=== PATIENT | female | born 1950 | race Caucasian/White ===

== ENCOUNTER 2018-02-21 05:13 | Inpatient (IN) ==
[~2018-02-21 05:13] MED LIST: Metoprolol Tartrate 25 MG Tablet PO SCH
[2018-02-21] MEDS ORDERED: Metoprolol Tartrate 25 MG Tablet PO ONE (05:50)
[2018-02-21] MEDS ORDERED: Chlorhexidine Gluconate 2% 1 Pack (2 Cloths) TOPICAL ONE (05:50)
[2018-02-21] MEDS ORDERED: Insulin Regular (For Infusion) 100 UNIT in Sodium Chlor 0.9% Inj 99 ML IV.CONT PRN ×2 (05:55→11:43)
[2018-02-21] MEDS ORDERED: Dextrose 50% in Water 50 ML Vial IV.PUSH PRN ×2 (05:55→11:43)
[2018-02-21] MEDS ORDERED: Chlorhexidine 4% Topical 120 APPLIC/120 ML Bottle TOPICAL SCH (06:00)
[2018-02-21] MEDS ORDERED: ceFAZolin Inj 2,000 MG in Sodium Chlor 0.9% Inj 80 ML IV.SIG SCH (06:00)
[2018-02-21] MEDS ORDERED: Sodium Chlor 0.9% Inj 500 ML IV.SIG SCH (06:00)
[2018-02-21] MEDS ORDERED: Heparin - SQ 10,000 UNITS/ML Vial ONE ×2 (06:45→06:46)
[2018-02-21] MEDS ORDERED: ceFAZolin 1 GM Premix Inj 2 GM/100 ML PIGGYBACK IV.SIG ONE (06:45)
[2018-02-21] MEDS ORDERED: MethylPREDNISolone Sod Succinate Inj 125 MG/2 ML Vial ONE (06:45)
[2018-02-21] MEDS ORDERED: Cardioplegic Irr Soln 2,000 ML IRRIGATION ONE (07:22)
[2018-02-21] MEDS ORDERED: Heparin 10,000 UNITS/10 ML Vial (for IV use) ONE (07:25)
[2018-02-21] MEDS ORDERED: Albumin Human 25% Inj 50 ML IV.SIG ONE (07:26)
[2018-02-21] MEDS ORDERED: Sodium Chloride 0.9% Irr Bot 500 ML, ceFAZolin Inj 500 MG IRRIGATION SCH ×2 (09:00)
[2018-02-21] MEDS ORDERED: Sodium Chlor 0.9% Inj 77.5 ML, Papaverine Inj 60 MG, Nitroglycerin Inj 100 MCG, dilTIAZ... IRRIGATION SCH ×3 (09:00)
[2018-02-21] MEDS ORDERED: Potassium Chlor 40 mEq Premix 40 MEQ/100 ML PIGGYBACK ONE (11:38)
[2018-02-21] MEDS ORDERED: ceFAZolin 1 GM Premix Inj 1 GM/50 ML PIGGYBACK IV.SIG ONE ×2 (11:38→13:32)
[2018-02-21] MEDS ORDERED: Potassium Chlor 20 mEq Premix 20 MEQ/100 ML PIGGYBACK IV.SIG PRN ×3 (11:43)
[2018-02-21] MEDS ORDERED: hydrALAZINE HCl Inj 20 MG/ML Vial IV.PUSH PRN (11:43)
[2018-02-21] MEDS ORDERED: Magnesium Sulfate Inj 2 GM in Sodium Chlor 0.9% Inj 96 ML IV.SIG PRN ×4 (11:43)
[2018-02-21] MEDS ORDERED: RESP: Racemic Epinephrine 2.25% 0.5 ML Neb NEB PRN (11:43)
[2018-02-21] MEDS ORDERED: Metoprolol Inj 5 MG/5 ML Vial IV.PUSH PRN (11:43)
[2018-02-21] MEDS ORDERED: Post-op Orders (for Pharmacy) OTHER STA (11:43)
[2018-02-21] MEDS ORDERED: Calcium Chloride Inj 1 GM/10 ML Syringe IV.PUSH PRN (11:43)
[2018-02-21] MEDS ORDERED: Dexmedetomidine Inj 200 MCG in Sodium Chlor 0.9% Inj 48 ML IV.CONT PRN (11:43)
[2018-02-21] MEDS ORDERED: Clevidipine Inj 25 MG/50 ML VIAL IV.CONT PRN (11:43)
--- NOTE | 2018-02-21 11:53 | P.OP ---
- Preoperative Diagnosis (1) Angina pectoris (2) CAD (coronary artery disease) (3) Anginal equivalent Postoperative Diagnosis: same Date of procedure: 02/21/18 Procedure: CABGx 4 BUCKLEY to LAD - good SVG to D1 - fair SVG to OM - good SVG PDA - good EVH Anesthesia: GETA Surgeon: Yamileth Byrd MD [employer] Driver: Deepali Rausch Pathology: none sent Operation and Findings: The risks, benefits, complications, treatment options, and expected outcomes were discussed with the patient. The possibilities of reaction to medication, pulmonary aspiration, perforation of viscus, bleeding, recurrent infection, the need for additional procedures, failure to diagnose a condition, and creating a complication requiring transfusion or operation were discussed with the patient. The patient concurred with the proposed plan, giving informed consent. The site of surgery properly noted/marked. The patient was taken to Operating Room, identified as Pilar Weldon and the procedure verified as CABG, EVH. A Time Out was held and the above information confirmed. Standard monitoring lines and Cabrera catheter were placed. General anesthesia was induced. The patient was prepped and draped in a sterile fashion. A median sternotomy was performed and electrocautery was used to obtain hemostasis. The left internal mammary artery was procured as a pedicle from the 7th rib to the 1st rib in the usual manner. Simultaneously left greater saphenous vein was procured from the left leg using a minimally invasive endoscopic technique. The vein was prepared for anastomosis and the leg wound was irrigated and closed in 2 layers. The pericardium was opened and a pericardial sling was created using interrupted 0 silk sutures. The patient was heparinized for cardiopulmonary bypass and the distal mammary pedicle was instrumented for anastomosis. The heart was instrumented for cardiopulmonary bypass in the usual manner. Antegrade blood cardioplegia was employed. The patient was placed on cardiopulmonary bypass. An aortic cross-clamp was applied and the heart was arrested using cold blood cardioplegia. Antegrade cardioplegia was administered after he each anastomosis. After adequate arrest, the distal right coronary circulation was investigated and the PDA was opened with a [place] blade and found to be a 1.5 millimeter good target. Saphenous vein was approximated to the PDA artery using a running 7 0 Prolene suture. The graft was measured for length and orientation and the proximal anastomosis was constructed to the ascending aorta using a running 5 0 Prolene suture after creating an aortotomy with a 5 millimeter punch. The OM artery was opened with a [place] blade and found to be a 1.5 millimeter good target. Saphenous vein was approximated to the OM artery using a running 7 0 Prolene suture. The graft was measured for length and orientation and the proximal anastomosis was constructed to the ascending aorta using a running 5 0 Prolene suture after creating an aortotomy with a 5 millimeter punch. The 1st diagonal artery was then opened with a [place] blade and found to be a 1 millimeter fair target. Saphenous vein was approximated to the D1 artery using a running 7 0 Prolene suture. The graft was measured for length and orientation and was suspended from the pericardium. The distal LAD was opened with a [place] blade and found to be a 1.5 millimeter good target. The left internal mammary artery was approximated to the LAD using a running 7 0 Prolene suture. The pedicle was attached to the epicardium using interrupted 5 0 silk suture. The patient was systemically rewarmed and received a hotshot dose of warm blood cardioplegia. The aorta was vented and the proximal anastomosis to the D1 graft was accomplished using a running 5 0 Prolene suture after creating an aortotomy was a 5 millimeter punch. The cross-clamp was removed and all proximal and distal anastomoses were examined for hemostasis. The patient was weaned from cardiopulmonary bypass. Protamine was given. There was no adverse reaction. Decannulation was carried out without incident. Wound was checked for hemostasis which was obtained using electrocautery. A 36 [place] mediastinal and 32 [place] left pleural chest tubes were placed and secured to the skin with 0 silk suture. The sternum was closed with stainless steel wire. The fascia was closed with 1. PDS. The subcutaneous tissue was closed using a running 2-0 Vicryl suture. The skin was closed with 4-0 Monocryl. Sterile dressings were placed. At the end of the operation, all sponge, instruments, and needle counts were correct. The patient was transferred to the CVICU in stable condition. Findings: Diffuse CAD XC: 63 min CPB: 69 min Drains: mediastinal x 1 pleural x 1 1 Complications: none
[2018-02-21] MEDS ORDERED: Potassium Chlor 20 mEq Premix 40 MEQ/200 ML PIGGYBACK IV.SIG ONE (12:33)
[2018-02-21] MEDS ORDERED: fentaNYL Citrate Inj 250 MCG/5 ML Ampul ONE (12:50)
[2018-02-21] MEDS ORDERED: Calcium Chloride Inj 1 GM in Sodium Chlor 0.9% Inj 100 ML IV.SIG PRN (13:00)
--- NOTE | 2018-02-21 13:03 | XR ---
EXAM DATE: 02/21/2018 12:57 PM EST AGE/SEX: 67 years / Female INDICATIONS: Post op cabg. CLINICAL DATA: This is the patient's initial encounter. Patient reports that signs and symptoms have been present for 1 day and indicates a pain score of Nonresponsive. MEDICAL/SURGICAL HISTORY: Gastroesophageal reflux disease. Hypertension. diabetes . cardiac c ath. COMPARISON: [facility], CHEST 2V PA&LAT, 02/19/2018. . FINDINGS: Median sternotomy wires are noted status post cardiac surgery. Endotracheal tube has its tip 4 cm abo ve the katja. Nasogastric tube has its tip in the proximal stomach. Left chest tube and mediastinal drain are in good positions. No pneumothorax is noted. Right internal jugular central line has its ti p in the superior vena cava. Right perihilar atelectatic changes are noted. Minimal bibasilar atelect asis is also noted. CONCLUSION: 1. Minimal bibasilar and right perihilar atelectatic changes. 2. Multiple tubes and lines are noted status post CABG and are in good positions. Electronically signed by: Walter Auguste MD Board Certified Radiologist 02/21/2018 1:01 PM EST
[2018-02-21] MEDS ORDERED: ceFAZolin 2 GM Premix Inj 2 GM/100 ML BAG IV.SIG PRN (13:45)
--- NOTE | 2018-02-21 14:03 | P.PNCV ---
- Note Subjective/Hospital Course: 67/ female initially seen post cath , then again by Dr Byrd in [facility] office 02/06+ stress test, post cath multivessel disease EF 60% PMH: CAD, DM, GERD, HLP, HTN 02/21 pt electively admitted for surgery Date of procedure: 02/21/18 Procedure: CABGx 4 BUCKLEY to LAD - good SVG to D1 - fair SVG to OM - good SVG PDA - good EVH Objective: Vital Signs - 24 hr 02/21/18 06:23 02/21/18 12:16 02/21/18 13:26 Temperature 98.5 F Pulse Rate 72 Respiratory Rate 18 10 L 17 Blood Pressure 151/75 H Pulse Oximetry 97 95 95 Labs: Laboratory Results - last 12 hr 02/21/18 02/21/18 05:43 13:12 POC Glucose 109 MTS Gel Crossmatch See Detail - Plan (2) CAD (coronary artery disease) (2) CAD (coronary artery disease) Qualifiers: Coronary Disease-Associated Artery/Lesion type: [place] artery [place] vs. transplanted heart: [place] heart Associated angina: with other forms of angina Qualified Code(s): I25.118 - Atherosclerotic heart disease of [place] coronary artery with other forms of angina pectoris
--- NOTE | 2018-02-21 14:09 | P.DCO ---
- Diagnosis (1) Diabetes mellitus Status: Acute (2) CAD (coronary artery disease) Status: Acute (3) S/P CABG x 4 Status: Acute (4) Hyperlipidemia Status: Chronic (5) Hypertension Status: Chronic - Home Health Nursing Order: Medical education, Signs/symptoms of disease process, Diabetic education , Wound care and dressing changes, Nursing assessment with vital signs Instructions: Heart and Vascular Surgery patients *Special attention to sternal dressing Mandatory frequency Assess and evaluation, 4 days in a row The next week 3X week 2 times a week for 4 weeks 1 time a week for 5 weeks Schedule Heart and Vascular patients for full 60 day certification period Initial visit Review Open Heart Surgery Discharge Instructions (Sternal precautions, Activity, Elastic hose, Incision care, Driving, Incentive spirometry, Smoking, [place], Work and other) Need Betadine to paint incision Medication reconciliation Importance of follow up care/ check on appointments Make calendar record temperature daily When to call [facility] at Home nurse, review instructions, phone list Incentive Spirometry, demonstration Visit 1- Begin discharge instruction for patient family and/ or caregiver using teach back method- Signs and symptoms of infection Disease characteristics Medicines and side effects Foods and nutrition/ appetite Infection control/ hand washing/ hygiene Visit 2- Continue teaching Discharge instructions- include additional information on smoking cessation , sternal dressing (sternal vac) Visit 3- Continue teaching- Cough and deep breathing, incision monitoring. Choose my plate Visit 4- Continue teaching- Discuss limitations Discuss how they are feeling Discuss progress toward goals Remaining visits- continue teaching and monitoring For any questions please call : Saturday 8am-5pm Heart & Vascular Surgery Office ( Dr. Gonzalez & Dr. Byrd), After Hours / Nights (5pm -8am) Weekends and Holidays Please call [employer] [facility] Cardiac Intermediate Care Unit (CIC) Charge Nurse Incentive spirometry Q1 hr x 10, while awake, also use acapella device hourly whole awake Sternal Breast Bone Precautions: NO pushing or pulling, ( pt must use sternal pillow to support chest with all activities and with coughing ( takes up to 3 months breast bone to heal ) All females to wear sternal bra , launder as needed Daily incision care: ok to shower daily, no tub bath. Wash all incisions with liquid dial soap, clean wash cloth to each site, rinse and pat dry. Observe for any signs of infection, such as drainage which is dark yellow, tate, green or foul smelling. Immediately report to the surgeon any drainage from the chest incision, or legs, and for any abnormal drainage from the chest tube sites. Notify surgeon if any temp >101.5 degrees F. When specialty dressing removed/ or if you do not have one, continue to shower daily as above, then rinse and pat incision dry and paint with betadine daily x 5 days. Allow steri strips to fall off if you have any. Avoid lotions, creams, salves, oils, etc. for the first month Please see attached forms for additional instructions regarding post Open Heart specialty wound vacuum dressings. MARCO or Prevena , Dressing to be removed by Nursing staff on __02/28/[address] Byrd patients , please obtain CBC, BMP, PA & Lat CXR in 2 weeks, results to Dr. Byrd ( prescription will be given) ( ) (Tele: [phone]) , F/U appointment: as per DC instructions: PCP in 2 weeks, CV surgeon 2 weeks, [employer] Operator 3-4 weeks For any questions regarding incisions/ dressing / meds / post op care or above Symptoms, Saturday 8am-5pm Heart & Vascular Surgery Office ( Dr. Gonzalez & Dr. Byrd), After Hours / Nights (5pm -8am) Weekends and Holidays Please call [facility] Cardiac Intermediate Care Unit (CIC) Charge Nurse PREVENA Single Use Negative Wound Therapy System Caregiver Instruction Sheet 1. A Prevena dressing system was applied to the chest incision during surgery , to promote wound healing. It works via a suction device (negative pressure wound therapy) to remove low to moderate levels of exudate (drainage) and infectious materials. We recommend that the device stay in place for up to seven days, from day of surgery. 2. Day of Surgery___02/21/18 Day of Removal __02/28/18 3. The dressing should only be removed by a health ambulatory care. Please arrange removal of device to coincide with Home Health visit and or with Nursing staff at Rehab 4. If skin reddening or irritation of skin occurs, or excessive drainage, please notify the Cardiovascular Surgeons office at [phone]. 5. Light showering is permissible; however the pump should be disconnected and placed in safe location, where it will not get wet. The dressing should not be exposed to direct spray or submerged in water. No bath tub / shower only. Ensure the end of the tubing attached to the dressing is facing down so that water does not enter the top of the tube. 6. To remove Prevena dressing: press purple button to turn off device / remove the suction. Then disconnect the tubing from the pump. The fixation strips should be stretched away from the skin and the dressing lifted at one corner and peeled back until it has been fully removed. 7. After removal, it is ok to shower daily using liquid dial soap and clean wash cloth, rinse and pat dry, and leave incision open to air dry. For any concerns regarding Prevena dressing, and or wounds, please contact Jossy Whiteside, patient navigator at [phone] or notify the Cardiovascular Surgeons office at [phone]. - Case Management Consult Case Management Consult-Home Health: Yes - Certification I have seen patient Pilar Weldon on 02/21/18. My clinical findings support the need for the requested home health care services because: Deconditioned with increased weakness I certify that my clinical findings support that this patient is homebound because: Post-op weakness (1) Diabetes mellitus Qualifiers: Diabetes mellitus type: type 2 (2) CAD (coronary artery disease) Qualifiers: Coronary Disease-Associated Artery/Lesion type: [place] artery [place] vs. transplanted heart: [place] heart Associated angina: with other forms of angina Qualified Code(s): I25.118 - Atherosclerotic heart disease of [place] coronary artery with other forms of angina pectoris
[2018-02-21] MEDS: fentaNYL Citrate Inj 100 MCG/2 ML Ampul IV.PUSH PRN ×2 (16:01→18:04)
[2018-02-21] MEDS: Mupirocin 2% Nasal Oint Topical Syringe EACH NARE SCH ×2 (17:35→21:26)
[2018-02-21] MEDS: Amiodarone 200 MG Tablet PO SCH ×2 (17:40→21:27)
[2018-02-21] MEDS: ceFAZolin Inj 1 GM in Sodium Chlor 0.9% Inj 100 ML IV.SIG SCH (21:25)
[2018-02-21] MEDS: Albumin Human 5% Inj 250 ML IV.SIG PRN (22:24)
[2018-02-22] MEDS: Ketorolac Inj 30 MG/ML (IVP) Vial IV.PUSH PRN ×3 (01:39→23:29)
--- NOTE | 2018-02-22 04:09 | XR ---
EXAM DATE: 02/22/2018 3:56 AM EST AGE/SEX: 67 years / Female INDICATIONS: Shortness of breath, possible pneumothorax. CLINICAL DATA: This is the patient's subsequent encounter. Patient reports that signs and symptoms h ave been present for 3 days and indicates a pain score of 9/10. MEDICAL/SURGICAL HISTORY: Gastroesophageal reflux disease. Hypertension. Diabetes. CABG. COMPARISON: [facility] [place] 1V SINGLE AP, 02/21/2018. . FINDINGS: Portable AP view of the chest demonstrates a normal-sized cardiac silhouette. Median sternotomy wires are present. Right IJ line, mediastinal drain, and left chest tube remain but the nasogastric tube a nd endotracheal tube have been removed. There is left basilar opacity obscuring the medial left hemid iaphragm. No definite pneumothorax is identified. There is a stable linear opacity in the right lower lung zone. CONCLUSION: 1. Left chest tube remains present and no definite pneumothorax is identified. 2. Stable left lower lobe atelectasis versus airspace consolidation. Electronically signed by: Sage Granger MD Board Certified Radiologist 02/22/2018 4:07 AM EST
[2018-02-22] MEDS: Albumin Human 5% Inj 250 ML IV.SIG PRN (04:21)
[2018-02-22] MEDS: ceFAZolin Inj 1 GM in Sodium Chlor 0.9% Inj 100 ML IV.SIG SCH ×3 (04:24→21:17)
[2018-02-22 05:40] LABS: Hematocrit 31.9 % (35.0-46.0); Hemoglobin 11.3 gm/dL (11.6-15.3); Mean Corpuscular HGB Conc 35.3 % (32.0-36.0); Mean Corpuscular Hemoglobin 31.8 pg (27.0-34.0); Mean Corpuscular Volume 90.2 fL (80.0-100.0); Mean Platelet Volume 8.1 fL (7.0-11.0); Platelet Count 213 th/mm3 (150-450); Red Blood Count 3.53 mil/mm3 (4.00-5.30); Red Cell Distribution Width 12.5 % (11.6-17.2); White Blood Count 21.2 th/mm3 (4.0-11.0)
[2018-02-22] MEDS: Amiodarone 200 MG Tablet PO SCH ×3 (05:57→21:18)
[2018-02-22 06:14] LABS: Calcium 7.7 mg/dL (8.5-10.1); Carbon Dioxide 27.3 meq/L (21.0-32.0); Magnesium 2.4 mg/dL (1.5-2.5); Potassium 4.1 meq/L (3.5-5.1)
[2018-02-22] MEDS ORDERED: Dextrose 50% in Water 50 ML Vial IV.PUSH PRN (10:16)
[2018-02-22] MEDS ORDERED: Sod Phosphate/Sod Biphosphate (Adult) Enema 133 ML Bottle RECTAL PRN (10:16)
[2018-02-22] MEDS ORDERED: Bisacodyl 10 MG Supp RECTAL PRN (10:16)
[2018-02-22] MEDS: Metoprolol Tartrate 25 MG Tablet PO SCH ×2 (10:22→21:18)
[2018-02-22] MEDS: glipiZIDE 10 MG Tablet PO SCH ×2 (10:40→21:18)
[2018-02-22] MEDS: Mupirocin 2% Nasal Oint Topical Syringe EACH NARE SCH ×2 (11:01→21:18)
[2018-02-22] MEDS: Insulin NovoLOG Aspart Correctional Sugar Inj SQ SCH ×3 (14:00→21:17)
--- NOTE | 2018-02-22 15:19 | ECG ---
Date Performed: 02/22/2018 Time Performed: 04:06:10 PTAGE: 67 years EKG: Sinus rhythm Normal ECG PREVIOUS TRACING : 02/19/2018 09.29 Since the previous tracing, no significant change noted DOCTOR: Ricki Post Interpretating Date/Time 02/22/2018 15:18:26
[2018-02-22] MEDS: Docusate Sodium 100 MG Capsule PO SCH (21:18)
[2018-02-23] MEDS: Insulin NovoLOG Aspart Correctional Sugar Inj SQ SCH ×6 (02:51→21:21)
[2018-02-23 05:26] LABS: Baso % (Auto) 0.1 % (0.0-2.0); Eos % (Auto) 0.1 % (0.0-4.0); Hematocrit 31.6 % (35.0-46.0); Hemoglobin 10.5 gm/dL (11.6-15.3); Lymph # (Auto) 1.5 th/mm3 (1.0-4.8); Lymph % (Auto) 8.6 % (9.0-44.0); Mean Corpuscular Hemoglobin 30.8 pg (27.0-34.0); Mean Corpuscular Volume 93.3 fL (80.0-100.0); Mean Platelet Volume 8.3 fL (7.0-11.0); Mono # (Auto) 1.3 th/mm3 (0.0-0.9); Mono % (Auto) 7.4 % (0.0-8.0); Neut # (Auto) 14.2 th/mm3 (1.8-7.7); Neut % (Auto) 83.8 % (16.0-70.0); Platelet Count 190 th/mm3 (150-450); Red Blood Count 3.39 mil/mm3 (4.00-5.30); Red Cell Distribution Width 12.9 % (11.6-17.2)
[2018-02-23 05:50] LABS: Calcium 8.1 mg/dL (8.5-10.1); Magnesium 2.4 mg/dL (1.5-2.5); Potassium 4.6 meq/L (3.5-5.1)
[2018-02-23] MEDS: ceFAZolin Inj 1 GM in Sodium Chlor 0.9% Inj 100 ML IV.SIG SCH (05:50)
[2018-02-23] MEDS: Amiodarone 200 MG Tablet PO SCH (06:50)
[2018-02-23] MEDS: Polyethylene Glycol 3350 17 GM Packet PO SCH (09:08)
[2018-02-23] MEDS: Ketorolac Inj 30 MG/ML (IVP) Vial IV.PUSH PRN ×2 (09:08→17:42)
[2018-02-23] MEDS: Multivitamin/Minerals Therapeutic Tablet PO SCH (09:11)
[2018-02-23] MEDS: Mupirocin 2% Nasal Oint Topical Syringe EACH NARE SCH (09:11)
[2018-02-23] MEDS: glipiZIDE 10 MG Tablet PO SCH ×2 (09:11→21:13)
[2018-02-23] MEDS: Docusate Sodium 100 MG Capsule PO SCH ×2 (09:11→21:13)
[2018-02-23] MEDS: Metoprolol Tartrate 25 MG Tablet PO SCH ×2 (09:12→21:13)
--- NOTE | 2018-02-23 12:16 | P.PNCV ---
- Note CVT: Post Op Day #: 2 Subjective/Hospital Course: 67/ female initially seen post cath , then again by Dr Byrd in office 02/06+ stress test, post cath multivessel disease EF 60% PMH: CAD, DM, GERD, HLP, HTN 02/21 pt electively admitted for surgery Date of procedure: 02/21/18 Procedure: CABGx 4 BUCKLEY to LAD - good SVG to D1 - fair SVG to OM - good SVG PDA - good EVH 02/23/18 c/o incisional pain, nausea, poor appetite Chest tubes - 160ml/12hrs. Objective: Vital Signs - 24 hr 02/22/18 14:55 02/22/18 16:00 02/22/18 16:14 Temperature 99.0 F Pulse Rate 82 80 90 Respiratory Rate 18 22 Blood Pressure 112/55 L Pulse Oximetry 02/22/18 19:00 02/22/18 19:46 02/22/18 20:00 Temperature 98.6 F Pulse Rate 77 75 74 Respiratory Rate 18 Blood Pressure 115/56 L Pulse Oximetry 98 02/22/18 20:02 02/22/18 21:00 02/22/18 22:00 Temperature Pulse Rate 74 72 68 Respiratory Rate 18 Blood Pressure Pulse Oximetry 98 02/22/18 23:00 02/23/18 00:00 02/23/18 01:00 Temperature 98.2 F Pulse Rate 71 65 62 Respiratory Rate 16 Blood Pressure 105/65 Pulse Oximetry 96 02/23/18 02:00 02/23/18 03:00 02/23/18 04:00 Temperature 98.2 F Pulse Rate 58 L 58 L 57 L Respiratory Rate 18 Blood Pressure 108/51 L Pulse Oximetry 97 02/23/18 04:21 02/23/18 05:00 02/23/18 06:00 Temperature Pulse Rate 53 L 60 62 Respiratory Rate 18 Blood Pressure Pulse Oximetry 02/23/18 07:00 02/23/18 08:00 02/23/18 09:00 Temperature 98.6 F Pulse Rate 61 64 66 Respiratory Rate 20 Blood Pressure 105/52 L Pulse Oximetry 98 98 02/23/18 10:00 Temperature Pulse Rate 62 Respiratory Rate Blood Pressure Pulse Oximetry Labs: Laboratory Results - last 12 hr 02/21/18 02/23/18 02/23/18 05:43 02:27 04:50 WBC 17.0 H RBC 3.39 L Hgb 10.5 L Hct 31.6 L MCV 93.3 MCH 30.8 MCHC 33.0 RDW 12.9 Plt Count 190 MPV 8.3 Neut % (Auto) 83.8 H Lymph % (Auto) 8.6 L Shannon % (Auto) 7.4 Eos % (Auto) 0.1 Baso % (Auto) 0.1 Neut # (Auto) 14.2 H Lymph # (Auto) 1.5 Shannon # (Auto) 1.3 H Eos # (Auto) 0.0 Baso # (Auto) 0.0 WBC Differential . Differential Comment Auto diff final Sodium Potassium Chloride Carbon Dioxide Anion Gap BUN Creatinine Estimated GFR POC Glucose 149 H Random Glucose Calcium Magnesium MTS Gel Crossmatch See Detail 02/23/18 02/23/18 02/23/18 04:50 05:04 09:06 WBC RBC Hgb Hct MCV MCH MCHC RDW Plt Count MPV Neut % (Auto) Lymph % (Auto) [place] % (Auto) Eos % (Auto) Baso % (Auto) Neut # (Auto) Lymph # (Auto) [place] # (Auto) Eos # (Auto) Baso # (Auto) WBC Differential Differential Comment Sodium 138 Potassium 4.6 Chloride 104 Carbon Dioxide 28.0 Anion Gap 6 BUN 23 H Creatinine 0.98 Estimated GFR 57 L POC Glucose 146 H 212 H Random Glucose 147 H Calcium 8.1 L Magnesium 2.4 MTS Gel Crossmatch Result Diagrams: 02/23/18 04:50 02/23/18 04:50 Imaging: Chest X-Ray 02/22/18 05:00 CONCLUSION: 1. Left chest tube remains present and no definite pneumothorax is identified. 2. Stable left lower lobe atelectasis versus airspace consolidation. Cardiovascular: RRR Pulmonary: CTA GI/: NABS Incision: dry and intact CT: as above - Plan (1) Diabetes mellitus (2) CAD (coronary artery disease) Hold amiodarone Stop Percocet and start Tramadol for pain Encourage ambulation Reglan started Continue chest tubes to water seal (1) Diabetes mellitus Qualifiers: Diabetes mellitus type: type 2 (2) CAD (coronary artery disease) Qualifiers: Coronary Disease-Associated Artery/Lesion type: [place] artery [place] vs. transplanted heart: [place] heart Associated angina: with other forms of angina Qualified Code(s): I25.118 - Atherosclerotic heart disease of [place] coronary artery with other forms of angina pectoris
[2018-02-24] MEDS: Ketorolac Inj 30 MG/ML (IVP) Vial IV.PUSH PRN (03:00)
[2018-02-24] MEDS: Insulin NovoLOG Aspart Correctional Sugar Inj SQ SCH ×5 (03:54→20:47)
[2018-02-24] MEDS: Docusate Sodium 100 MG Capsule PO SCH ×2 (08:41→20:47)
[2018-02-24] MEDS: glipiZIDE 10 MG Tablet PO SCH ×2 (08:41→20:47)
[2018-02-24] MEDS: Metoprolol Tartrate 25 MG Tablet PO SCH ×2 (08:41→20:47)
[2018-02-24] MEDS: Multivitamin/Minerals Therapeutic Tablet PO SCH (08:41)
[2018-02-24] MEDS: Polyethylene Glycol 3350 17 GM Packet PO SCH (08:41)
--- NOTE | 2018-02-24 14:14 | P.PNCV ---
- Note Subjective/Hospital Course: 67/ female initially seen post cath , then again by Dr Byrd in office 02/06+ stress test, post cath multivessel disease EF 60% PMH: CAD, DM, GERD, HLP, HTN 02/21 pt electively admitted for surgery Date of procedure: 02/21/18 Procedure: CABGx 4 BUCKLEY to LAD - good SVG to D1 - fair SVG to OM - good SVG PDA - good EVH 02/23/18 c/o incisional pain, nausea, poor appetite Chest tubes - 160ml/12hrs. 02/24 chest tube dc without difficulty , weaning off 02 gentle diuresis blood sugars controlled eval for dc home in am Objective: Vital Signs - 24 hr 02/23/18 15:00 02/23/18 16:00 02/23/18 17:00 Temperature 97.5 F L Pulse Rate 63 63 68 Respiratory Rate 20 Blood Pressure 109/53 L Pulse Oximetry 96 02/23/18 18:00 02/23/18 19:00 02/23/18 19:59 Temperature 99.6 F Pulse Rate 67 64 Respiratory Rate 18 Blood Pressure 114/54 L Pulse Oximetry 94 L 94 L 02/23/18 20:00 02/23/18 21:00 02/23/18 22:00 Temperature Pulse Rate 60 62 67 Respiratory Rate Blood Pressure Pulse Oximetry 02/23/18 23:00 02/24/18 00:00 02/24/18 01:00 Temperature 98.4 F Pulse Rate 55 L 70 65 Respiratory Rate 16 Blood Pressure 113/54 L Pulse Oximetry 98 02/24/18 02:00 02/24/18 03:00 02/24/18 04:00 Temperature 98.2 F Pulse Rate 72 72 76 Respiratory Rate 16 Blood Pressure 139/65 Pulse Oximetry 96 02/24/18 05:00 02/24/18 05:47 02/24/18 07:00 Temperature 99.0 F Pulse Rate 76 75 83 Respiratory Rate 18 Blood Pressure 130/60 Pulse Oximetry 96 02/24/18 08:00 02/24/18 09:00 02/24/18 10:00 Temperature Pulse Rate 78 82 80 Respiratory Rate Blood Pressure Pulse Oximetry 96 02/24/18 10:09 02/24/18 11:00 02/24/18 12:00 Temperature 98.9 F Pulse Rate 84 84 Respiratory Rate 18 Blood Pressure 154/58 H Pulse Oximetry 96 95 GENERAL: A&O x 3 SKIN: Warm and dry. prevena dressing to chest , incision intact to left leg HEAD: Normocephalic. EYES: No scleral icterus. No injection or drainage. NECK: Supple, trachea midline. No JVD or lymphadenopathy. CARDIOVASCULAR: Regular rate and rhythm without murmurs, gallops, or rubs. RESPIRATORY: Breath sounds equal bilaterally. No accessory muscle use. chest tube dc without difficulty GASTROINTESTINAL: Abdomen soft, non-tender, nondistended. MUSCULOSKELETAL: No cyanosis, or edema. BACK: Nontender without obvious deformity. No CVA tenderness. Labs: Laboratory Results - last 12 hr 02/24/18 02/24/18 02/24/18 03:22 05:34 05:36 POC Glucose 121 H 66 L 100 02/24/18 02/24/18 07:23 11:35 POC Glucose 124 H 94 Result Diagrams: 02/23/18 04:50 02/23/18 04:50 - Plan (1) Diabetes mellitus (2) CAD (coronary artery disease) (3) S/P CABG x 4 Plan: resp: continue pulm toileting wean off 02 chest tube dc CV: on ASA, statin, BB gentle diuresis GI: on protonix tolerating diet Endo: insulin sliding scale, home meds resumed PT/ OOB eval for dc in am (1) Diabetes mellitus Qualifiers: Diabetes mellitus type: type 2 (2) CAD (coronary artery disease) Qualifiers: Coronary Disease-Associated Artery/Lesion type: [place] artery [place] vs. transplanted heart: [place] heart Associated angina: with other forms of angina Qualified Code(s): I25.118 - Atherosclerotic heart disease of [place] coronary artery with other forms of angina pectoris
--- NOTE | 2018-02-24 14:28 | P.DS ---
Date of admission: 02/21/18 05:13 Primary care physician: Denia Alex MD Attending physician on discharge: Yamileth Byrd Anticipated date of discharge: 02/25/18 Brief History from admission: 67/ female initially seen post cath , then again by Dr Byrd in office 02/06+ stress test, post cath multivessel disease EF 60% PMH: CAD, DM, GERD, HLP, HTN 02/21 pt electively admitted for surgery DS: Diagnosis - Discharge Diagnosis (1) Diabetes mellitus Status: Chronic (2) CAD (coronary artery disease) Status: Chronic (3) S/P CABG x 4 Status: Acute (4) Hyperlipidemia Status: Chronic (5) Hypertension Status: Chronic DS: Medications - Discharge Medications Prescriptions: docusate sodium [DOK] 100 mg PO BID #30 cap eyqkjhfs-oymb-DN-calcium-mins [Thera M Plus (ferrous fumarat)] 1 tab PO DAILY # 30 tab tramadol [Ultram] 50 mg PO Q6H PRN #30 tab PRN Reason: Pain Scale 1 To 10 DS: Summary Hospital Course: 02/21 pt electively admitted for surgery Date of procedure: 02/21/18 Procedure: CABGx 4 BUCKLEY to LAD - good SVG to D1 - fair SVG to OM - good SVG PDA - good EVH 02/23/18 c/o incisional pain, nausea, poor appetite Chest tubes - 160ml/12hrs. 02/24 chest tube dc without difficulty on nasal cannula gentle diuresis eval for dc in am - Time Spent with Patient Total time spent providing and/or coordinating discharge services: Greater than 30 minutes - Quality: VTE Deep Vein Thrombosis/Pulmonary Embolism Present on Admission: No Exam Vital signs: Vital Signs 02/23/18 15:00 02/23/18 16:00 02/23/18 17:00 Temperature 97.5 F L Pulse Rate 63 63 68 Respiratory Rate 20 Blood Pressure 109/53 L Pulse Oximetry 96 02/23/18 18:00 02/23/18 19:00 02/23/18 19:59 Temperature 99.6 F Pulse Rate 67 64 Respiratory Rate 18 Blood Pressure 114/54 L Pulse Oximetry 94 L 94 L 02/23/18 20:00 02/23/18 21:00 02/23/18 22:00 Temperature Pulse Rate 60 62 67 Respiratory Rate Blood Pressure Pulse Oximetry 02/23/18 23:00 02/24/18 00:00 02/24/18 01:00 Temperature 98.4 F Pulse Rate 55 L 70 65 Respiratory Rate 16 Blood Pressure 113/54 L Pulse Oximetry 98 02/24/18 02:00 02/24/18 03:00 02/24/18 04:00 Temperature 98.2 F Pulse Rate 72 72 76 Respiratory Rate 16 Blood Pressure 139/65 Pulse Oximetry 96 02/24/18 05:00 02/24/18 05:47 02/24/18 07:00 Temperature 99.0 F Pulse Rate 76 75 83 Respiratory Rate 18 Blood Pressure 130/60 Pulse Oximetry 96 02/24/18 08:00 02/24/18 09:00 02/24/18 10:00 Temperature Pulse Rate 78 82 80 Respiratory Rate Blood Pressure Pulse Oximetry 96 02/24/18 10:09 02/24/18 11:00 02/24/18 12:00 Temperature 98.9 F Pulse Rate 84 84 Respiratory Rate 18 Blood Pressure 154/58 H Pulse Oximetry 96 95 Intake & Output 02/23/18 02/24/18 02/24/18 18:59 06:59 18:59 Intake Total 580 / 580 240 / 240 Output Total 150 / 150 520 / 520 Balance 430 / 430 -280 / -280 Weight 72.5 kg Intake: IV 100 / 100 Ancef Inj 1 GM In NS Inj 100 ML 100 / 100 @ 200 mls/hr IV.SIG Q8H ZAID Rx #:[id number] Oral 480 / 480 240 / 240 Output: Urine 100 / 100 400 / 400 Chest Tube Drainage 50 / 50 120 / 120 #2 Anterior Y Connected 50 / 50 120 / 120 Other: # Voids 2 Date of Last Bowel Movement 02/20/18 # Bowel Movements 0 - Constitutional no acute distress - Routine HEENT Exam Head: Present: normocephalic, atraumatic - Routine Neck Exam Present: supple, full ROM - Routine Chest/Breast/Axilla Exam Chest wall: Present: tenderness - Routine Respiratory Exam Present: decreased breath sounds, CTA bilaterally - Routine Cardiovascular Exam Present: RRR, S1, S2 - Routine Abdominal Exam Present: soft, normoactive bowel sounds - Routine Extremities Exam Present: normal capillary refill Comments: incision intact to left leg - Routine Skin Exam Present: intact, wounds Comments: prevena dressing to chest - Routine Neurological Exam Present: alert, oriented X3, CN II-XII intact Results Procedures completed during hospitalization: Date of procedure: 02/21/18 Procedure: CABGx 4 BUCKLEY to LAD - good SVG to D1 - fair SVG to OM - good SVG PDA - good EVH Labs on day of discharge: Labs from last 24 hours 02/24/18 02/24/18 02/24/18 11:35 07:23 05:36 POC Glucose 94 124 H 100 02/24/18 02/24/18 02/23/18 05:34 03:22 21:20 POC Glucose 66 L 121 H 170 H 02/23/18 17:19 POC Glucose 130 H - Impressions ITS Impressions Chest X-Ray 02/22/18 05:00 CONCLUSION: 1. Left chest tube remains present and no definite pneumothorax is identified. 2. Stable left lower lobe atelectasis versus airspace consolidation. Discharge Plan - Discharge Disposition Patient Disposition: /Home Health Service - Discharge Condition Condition: Good - Discharge Order Discharge Orders: Discharge Order (Routine); Ordered 02/25/18 Ordered By: Meredith Jj - Physicians Team Primary Care Provider: Denia Alex Attending Provider: Yamileth Byrd Other Providers: [facility] - Rxs /Orders / Referrals /Forms Prescriptions: New docusate sodium [DOK] 100 mg Capsule 100 mg PO BID Qty: 30 RF: 0 ambugrhx-hatb-GN-calcium-mins [Thera M Plus (ferrous fumarat)] 9 mg iron-400 mcg Tablet 1 tab PO DAILY Qty: 30 RF: 2 tramadol [Ultram] 50 mg Tablet 50 mg PO Q6H PRN (Reason: Pain Scale 1 To 10) Qty: 30 RF: 0 Continue albuterol sulfate [Proventil HFA] 90 mcg/actuation Hfa Aerosol Inhaler 1 puff INHALATION Q4-6H PRN (Reason: Shortness Of Breath) aspirin [Aspirin Low Dose] 81 mg Tablet,Delayed Release (Dr/Ec) 81 mg PO DAILY diclofenac sodium 1 % Gel 2 g TOPICAL QID PRN (Reason: Pain) dulaglutide [Trulicity] 0.75 mg/0.5 mL Pen Injector 0.75 mg SUBCUT QWEEK glipizide 10 mg Tablet 10 mg PO BID metformin 850 mg Tablet 850 mg PO BID metoprolol tartrate 25 mg Tablet 25 mg PO BID olmesartan [Benicar] 40 mg Tablet 40 mg PO DAILY ranitidine HCl 150 mg Tablet 150 mg PO DAILY PRN (Reason: Acid Reflux) rosuvastatin 10 mg Tablet 10 mg PO DAILY Ambulatory Orders / Order Sets / DME: XR chest 2V PA&LAT (Routine) Timeframe: 2 Weeks Location: Determined by Patient Ordered By: Meredith Jj Basic Metabolic Panel (Routine) Timeframe: 2 Weeks Location: Determined by Patient Ordered By: Meredith Jj Complete Blood Count NO Diff (Routine) Timeframe: 2 Weeks Location: Determined by Patient Ordered By: Meredith Jj Referrals: Meredith Jj [[facility] RN PRACTITIONER] - See Instructions ( Your appointment has been scheduled for [03/13/18] at [11:30 am] If you cannot make this appointment, please call the office to reschedule ) Mark Alarcon MD [Physician] - See Instructions ( Your appointment has been scheduled for [03/25/18] at [1:20 pm] If you cannot make this appointment, please call the office to reschedule ) Denia Alex MD [Primary Care Provider] - See Instructions ( Your appointment has been scheduled for [03/18/18] at [12:30 PM] If you cannot make this appointment, please call the office to reschedule ) - Discharge Instructions Patient Printed Instructions: CABG (Coronary Artery Bypass Graft) (DC) Additional Instructions: Incentive spirometry Q1 hr x 10, while awake, also use acapella device hourly whole awake Sternal Breast Bone Precautions: NO pushing or pulling, ( pt must use sternal pillow to support chest with all activities and with coughing ( takes up to 3 months breast bone to heal ) All females to wear sternal bra , launder as needed Daily incision care: ok to shower daily, no tub bath. Wash all incisions with liquid dial soap, clean wash cloth to each site, rinse and pat dry. Observe for any signs of infection, such as drainage which is dark yellow, tate, green or foul smelling. Immediately report to the surgeon any drainage from the chest incision, or legs, and for any abnormal drainage from the chest tube sites. Notify surgeon if any temp >101.5 degrees F. When specialty dressing removed/ or if you do not have one, continue to shower daily as above, then rinse and pat incision dry and paint with betadine daily x 5 days. Allow steri strips to fall off if you have any. Avoid lotions, creams, salves, oils, etc. for the first month Please see attached forms for additional instructions regarding post Open Heart specialty wound vacuum dressings. MARCO or Prevena , Dressing to be removed by Nursing staff on __02/28/[address] Byrd patients , please obtain CBC, BMP, PA & Lat CXR in 2 weeks, results to Dr. Byrd ( prescription will be given) ( ) (Tele: [phone]) F/U appointment: as per DC instructions: PCP in 2 weeks, CV surgeon 2 weeks, Cyber Security Administrator 3-4 weeks For any questions regarding incisions/ dressing / meds / post op care or above Symptoms, Saturday 8am-5pm Heart & Vascular Surgery Office ( Dr. Gonzalez & Dr. Byrd), After Hours / Nights (5pm -8am) Weekends and Holidays Please call [facility] ([facility]) Charge Nurse PREVENA Single Use Negative Wound Therapy System Caregiver Instruction Sheet 1. A Prevena dressing system was applied to the chest incision during surgery , to promote wound healing. It works via a suction device (negative pressure wound therapy) to remove low to moderate levels of exudate (drainage) and infectious materials. We recommend that the device stay in place for up to seven days, from day of surgery. 2. Day of Surgery_02/21/18 Day of Removal ____02/28/18 3. The dressing should only be removed by a health health care assistant. Please arrange removal of device to coincide with Home Health visit and or with Nursing staff at Rehab 4. If skin reddening or irritation of skin occurs, or excessive drainage, please notify the Cardiovascular Surgeons office at [phone]. 5. Light showering is permissible; however the pump should be disconnected and placed in safe location, where it will not get wet. The dressing should not be exposed to direct spray or submerged in water. No bath tub / shower only. Ensure the end of the tubing attached to the dressing is facing down so that water does not enter the top of the tube. 6. To remove Prevena dressing: press purple button to turn off device / remove the suction. Then disconnect the tubing from the pump. The fixation strips should be stretched away from the skin and the dressing lifted at one corner and peeled back until it has been fully removed. 7. After removal, it is ok to shower daily using liquid dial soap and clean wash cloth, rinse and pat dry, and leave incision open to air dry. For any concerns regarding Prevena dressing, and or wounds, please contact Jossy Whiteside, patient navigator at [phone] or notify the Cardiovascular Surgeons office at [phone].
--- NOTE | 2018-02-25 04:48 | XR ---
EXAM DATE: 02/25/2018 4:31 AM EST AGE/SEX: 67 years / Female INDICATIONS: Short of breath. CLINICAL DATA: This is the patient's subsequent encounter. Patient reports that signs and symptoms h ave been present for 4 - 6 days and indicates a pain score of 0/10. MEDICAL/SURGICAL HISTORY: . Gastroesophageal reflux disease. Hypertension. Diabetes. CABG. COMPARISON: C, CHEST 1V SINGLE AP, 02/22/2018. . FINDINGS: Mediastinal drains, left-sided chest tube and right IJ central line has been removed. No significant pneumothorax. Interval development of probable small right-sided pleural effusion and associated airs pace disease in the right lower lung zone. Cardiomediastinal contours are stable. Remainder of the ex am is unchanged. CONCLUSION: 1. Tubes and lines have been removed. 2. Interval development of small right pleural effusion with associated right lower lobe airspace di sease likely reflecting atelectasis. 3. Stable left lower lobe atelectasis. Electronically signed by: Tex Wen MD Board Certified Radiologist 02/25/2018 4:47 AM EST
[2018-02-25 07:15] VITALS: O2SAT 94
[2018-02-25 08:15] VITALS: BP 147/72; RESP 14; TEMP 98.5
[2018-02-25] MEDS: glipiZIDE 10 MG Tablet PO SCH (09:11)
[2018-02-25] MEDS: Docusate Sodium 100 MG Capsule PO SCH (09:12)
[2018-02-25] MEDS: Multivitamin/Minerals Therapeutic Tablet PO SCH (09:13)
--- NOTE | 2018-02-25 09:13 | P.PNCV ---
- Note Subjective/Hospital Course: 67/ female initially seen post cath , then again by Dr Byrd in office 02/06+ stress test, post cath multivessel disease EF 60% PMH: CAD, DM, GERD, HLP, HTN 02/21 pt electively admitted for surgery Date of procedure: 02/21/18 Procedure: CABGx 4 BUCKLEY to LAD - good SVG to D1 - fair SVG to OM - good SVG PDA - good EVH 02/23/18 c/o incisional pain, nausea, poor appetite Chest tubes - 160ml/12hrs. 02/24 chest tube dc without difficulty , weaning off 02 gentle diuresis blood sugars controlled eval for dc home in am 02/25 pt stable to dc home remains in NSR Objective: Vital Signs - 24 hr 02/24/18 10:00 02/24/18 10:09 02/24/18 11:00 Temperature 98.9 F Pulse Rate 80 84 Respiratory Rate 18 Blood Pressure 154/58 H Pulse Oximetry 96 95 02/24/18 12:00 02/24/18 13:00 02/24/18 14:00 Temperature Pulse Rate 84 82 80 Respiratory Rate Blood Pressure Pulse Oximetry 02/24/18 15:00 02/24/18 16:00 02/24/18 17:00 Temperature 98.6 F Pulse Rate 83 88 86 Respiratory Rate 18 Blood Pressure 142/54 H Pulse Oximetry 96 02/24/18 18:00 02/24/18 19:00 02/24/18 20:00 Temperature 99.3 F Pulse Rate 85 94 H 94 H Respiratory Rate 18 Blood Pressure 139/65 Pulse Oximetry 92 L 92 L 02/24/18 21:00 02/24/18 22:00 02/24/18 23:00 Temperature 98.9 F Pulse Rate 94 H 88 79 Respiratory Rate 14 Blood Pressure 127/86 Pulse Oximetry 94 L 02/25/18 00:00 02/25/18 01:00 02/25/18 02:00 Temperature Pulse Rate 82 85 78 Respiratory Rate Blood Pressure Pulse Oximetry 02/25/18 03:00 02/25/18 04:00 02/25/18 05:00 Temperature 98.1 F Pulse Rate 85 76 78 Respiratory Rate 16 Blood Pressure 137/63 Pulse Oximetry 98 02/25/18 06:00 02/25/18 07:00 02/25/18 07:14 Temperature 98.5 F Pulse Rate 74 84 Respiratory Rate 14 Blood Pressure 147/72 H Pulse Oximetry 92 L 94 L GENERAL: A&O x 3 SKIN: Warm and dry. Prevena dressing to chest , incision intact to left leg HEAD: Normocephalic. EYES: No scleral icterus. No injection or drainage. NECK: Supple, trachea midline. No JVD or lymphadenopathy. CARDIOVASCULAR: Regular rate and rhythm without murmurs, gallops, or rubs. RESPIRATORY: Breath sounds equal bilaterally. No accessory muscle use. GASTROINTESTINAL: Abdomen soft, non-tender, nondistended. MUSCULOSKELETAL: No cyanosis, or edema. BACK: Nontender without obvious deformity. No CVA tenderness. Labs: Laboratory Results - last 12 hr 02/25/18 08:09 POC Glucose 83 Result Diagrams: 02/23/18 04:50 02/23/18 04:50 - Plan (1) Diabetes mellitus (2) CAD (coronary artery disease) (3) S/P CABG x 4 Plan: resp: continue pulm toileting wean off 02 chest tube dc CV: on ASA, statin, BB gentle diuresis GI: on protonix tolerating diet Endo: insulin sliding scale, home meds resumed PT/ OOB stable for dc home today (1) Diabetes mellitus Qualifiers: Diabetes mellitus type: type 2 (2) CAD (coronary artery disease) Qualifiers: Coronary Disease-Associated Artery/Lesion type: [place] artery [place] vs. transplanted heart: [place] heart Associated angina: with other forms of angina Qualified Code(s): I25.118 - Atherosclerotic heart disease of [place] coronary artery with other forms of angina pectoris
[2018-02-25] MEDS: Insulin NovoLOG Aspart Correctional Sugar Inj SQ SCH (09:14)
[2018-02-25] MEDS: Metoprolol Tartrate 25 MG Tablet PO SCH (09:14)
[2018-02-25] MEDS: Polyethylene Glycol 3350 17 GM Packet PO SCH (09:15)
[2018-02-25 11:31] VITALS: PULSE 86
--- NOTE | 2018-02-26 14:04 | MA ---
cc: Mark Alarcon MD DATE: 02/26/2018 PROCEDURES PERFORMED: 1. Fluoroscopy with interpretation. 2. Coronary angiography. METHODS: Risks, benefits and alternatives were discussed with the patient. The patient understood and consented to the procedure. The patient was brought to catheterization lab, placed on the examination table. The right wrist was prepped and draped in the usual sterile fashion. The right wrist was anesthetized with 2% lidocaine. The right radial artery was cannulated and a 6-German 7 cm sheath was placed without difficulty. CORONARY ANGIOGRAPHY: 1. Left anterior descending coronary artery has diffuse disease throughout its entire course. Estimated severity of stenosis 80%-90% in the proximal segment; it is occluded in the mid segment. There are several septal perforators, which are visualized to the distal left anterior descending coronary artery. 2. Left circumflex smaller caliber size, but subbranch has 90% ostial stenosis. 3. Right coronary has 95% discrete stenosis in the midsegment. It is a dominant vessel, giving rise to posterior descending branch. CONCLUSIONS: Multivessel coronary artery disease. PLAN: We will consult Cardiothoracic Surgery. Mark Alarcon MD NEHEMIAS/terrie , 01:45 PM , 01:52 PM
== END 2018-02-25 13:26 | disposition home health service (06) | DRG 236 ==
LOC: HSDI 05:13 → HCVI 12:15 → HCPC 02-22 18:43
PROVIDERS: ADMIT Thoracic Surgery (Cardiothoracic Vascular Surgery); ATTEND Thoracic Surgery (Cardiothoracic Vascular Surgery)
CPT/HCPCS: 36415; 36430; 71010; 71020; 71045; 71046; 76937; 80048; 81001; 82948; 82962; 83735; 85025; 85027; 85610; 85730; 86850; 86900; 86901; 86923; 87641; 93005; 93880; 93965; 93970; 93998; 94002; 94010; 94150; 94640; 94650; 94651; 94656; 94664; 94665; 94667; 94668; 97110; 97116; 97163; 97530; J0131; J0690; J1644; J1815; J1817; J1885; J1940; J2150; J2250; J2405; J2440; J2765; J2930; J3010; J3370; J3480; J7120; P9016; P9045; P9047